=== PATIENT | male | born 1975 | race Two or more races ===

== ENCOUNTER 2021-10-30 08:37 | Outpatient (CLI) | payer OTHER | END 2021-10-30 08:52 | disposition home or self-care (01) | LOC: SONOGRAMA 08:37 | PROVIDERS: ATTEND Specialist | DX: R22.2 Localized swelling, mass and lump, trunk (principal) ==

== ENCOUNTER 2021-11-14 05:06 | Day surgery (SDC) | payer OTHER ==
[~2021-11-14] VITALS: Ht 185.4 cm; Wt 89.4 kg
[~2021-11-14 05:06] MED LIST: LOSARTAN POTASSI1 GM
== END 2021-11-14 11:15 | disposition home or self-care (01) ==
LOC: CIR.AMB 05:06
PROVIDERS: ATTEND Specialist
DX: D17.1 Benign lipomatous neoplasm of skin and subcutaneous tissue of trunk (principal); Z20.822 Contact with and (suspected) exposure to COVID-19; I10 Essential (primary) hypertension; Z71.6 Tobacco abuse counseling; F17.210 Nicotine dependence, cigarettes, uncomplicated; K29.00 Acute gastritis without bleeding